=== PATIENT | male | born 1960 | race Caucasian/White ===

== ENCOUNTER 2018-05-07 11:29 | Observation (INO) | payer BC ==
--- NOTE | 2018-05-07 11:47 | ED ---
HPI Chest Pain - HPI Summary HPI Summary: The pt is a 57 y/o male resenting to [facility] c/o intermittent CP since 1.5 months ago worsened today morning. He notes SOB on exertion, dizziness, elevated blood pressure and nausea but denies fever. 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 Mayo MD at [facility]. He takes blood thinners. PMHx: DE in 8-9 years ago, HTN, DVT. Home Medications Medication Instructions Recorded Confirmed Type Atorvastatin* [Lipitor 20 MG*] 40 mg PO 2100 07/17/14 05/07/18 History Rivaroxaban TAB(*) [Xarelto 20 mg] 20 mg PO DAILY 09/20/17 05/07/18 History Aspirin EC TAB* [Ecotrin EC Low 81 mg PO QAM 05/07/18 05/07/18 History Dose 81 MG*] Metoprolol Succinate XL TAB* 25 mg PO BEDTIME 05/07/18 05/07/18 History [Toprol XL TAB*] Potassium Chlor TAB* [Klor Con ER 20 meq PO QAM 05/07/18 05/07/18 History TAB*] dilTIAZem HCl [Diltiazem 24Hr ER] 240 mg PO QAM 05/07/18 05/07/18 History - History of Current Complaint Time Seen by Provider: 05/07/18 11:38 Hx Obtained From: Patient Onset/Duration: Started Weeks Ago - 1.5 months, Still Present, Worse Since - Today morning Timing: Intermittent, Lasting Minutes Initial Severity: Mild Current Severity: Mild Pain Intensity: 4 Pain Scale Used: 0-10 Numeric Chest Pain Location: Diffuse Chest Pain Radiates: No Character: Pressure/Squeezing Aggravating Factor(s): Nothing Alleviating Factor(s): Nothing Associated Signs and Symptoms: Positive: Dizziness, Shortness of Breath, Nausea. Negative: Fever - Allergy/Home Medications Allergies/Adverse Reactions: Allergies Allergy/AdvReac Type Severity Reaction Status Date / Time atenolol AdvReac Mild Fatigue Verified 05/07/18 11:33 diltiazem AdvReac Mild Abdominal Verified 05/07/18 11:33 Pain Home Medications: Home Medications Aspirin EC TAB* [Ecotrin EC Low Dose 81 MG*] 81 mg PO QAM 05/07/18 [History Confirmed 05/07/18] Metoprolol Succinate XL TAB* [Toprol XL TAB*] 25 mg PO BEDTIME 05/07/18 [ History Confirmed 05/07/18] Potassium Chlor TAB* [Klor Con ER TAB*] 20 meq PO QAM 05/07/18 [History Confirmed 05/07/18] dilTIAZem HCl [Diltiazem 24Hr ER] 240 mg PO QAM 05/07/18 [History Confirmed ] PMH/Surg Hx/FS Hx/Imm Hx Previously Healthy: No Endocrine/Hematology History: Denies: Hx Diabetes Cardiovascular History: Reports: Hx Angina, Hx Coronary Artery Disease, Hx Hypercholesterolemia, Hx Hypertension - W/MEDS, Hx Myocardial Infarction Denies: Hx Congestive Heart Failure, Hx Pacemaker/ICD, Hx Valvular Heart Disease History: Denies: Hx Renal Disease Sensory History: Denies: Hx Hearing Aid Psychiatric History: Denies: Hx Panic Disorder - Cancer History Cancer Type, Location and Year: None reported - Surgical History Surgery Procedure, Year, and Place: HERNIA REPAIRS /VASECTOMY - Immunization History Date of Tetanus Vaccine: unknow Infectious Disease History: No Infectious Disease History: Denies: Traveled Outside the [place] in Last 30 Days - Social History Occupation: Employed Full-time Lives: With Family Alcohol Use: Daily Alcohol Amount: 2 glasses of wine Substance Use Type: Reports: None Hx Tobacco Use: No Smoking Status (MU): Never Smoked Tobacco Review of Systems Constitutional: Other - Positive: elevated blood pressure Negative: Fever Positive: Chest Pain Positive: Shortness Of Breath Positive: Nausea Positive: no symptoms reported All Other Systems Reviewed And Are Negative: Yes Physical Exam - Summary Physical Exam Summary: Appearance: Well appearing, no pain distress Skin: warm, dry, reflects adequate perfusion Head/face: normal Eyes: EOMI, CANDIE ENT: normal Neck: supple, non-tender Respiratory: CTA, breath sounds present Cardiovascular: RRR, pulses symmetrical Abdomen: non-tender, soft Bowel sounds : present Musculoskeletal: normal, strength/ROM intact Neuro: normal, sensory motor intact, A&Ox3 Triage Information Reviewed: Yes Vital Signs On Initial Exam: Initial Vitals Temp Pulse Resp BP Pulse Ox 98.1 F 88 18 220/108 100 05/07/18 11:31 05/07/18 11:31 05/07/18 11:31 05/07/18 11:31 05/07/18 11:31 Vital Signs Reviewed: Yes Diagnostics - Vital Signs Vital Signs Temp Pulse Resp BP Pulse Ox 05/07/18 11:31 98.1 F 88 18 220/108 100 - Laboratory Result Diagrams: 05/07/18 12:05 05/07/18 12:05 Lab Statement: Any lab studies that have been ordered have been reviewed, and results considered in the medical decision making process. - Radiology CXR Radiology Interpretation Completed By: Radiologist Summary of Radiographic Findings: IMPRESSION: No evidence for acute disease. The ED physician reviewed this radiology report. - EKG 11:41 Cardiac Rate: NL - 83 bpm EKG Rhythm: Sinus Rhythm ST Segment: Normal Ectopy: None Chest Pain Course/Dx - Course Course Of Treatment: A 57 year-old M presents to the ED with a CC of intermittent CP since 1.5 months ago worse today morning. He notes SOB on exertion, dizziness, elevated blood pressure and nausea but denies fever. A physical exam is unremarkable. A CXR is unremarkable. An EKG is unremarkable. In the ED course, the pt was given ASA 324mg PO, Clonidine 1.2 mg PO and NTG 2 % ointment 1 inch topical, Ketorolac 30 mg IV and Lorazepam 0.5 mg IV which improved the symptoms. I discussed the care of the pt with Dr. Mayo MD who recommended performing an echocardiogram (echo). The hospitalist- Dr. Mendoza agreed to admit the pt. 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 Pt is agreeable with this plan. Allergies noted. - Chest Pain Differential Diagnosis/HQI/PQRI: Acute DE, ACS, CHF, Lower Respiratory Infection , Pulmonary Edema - Diagnoses Provider Diagnoses: Chest pain, ACS (acute coronary syndrome) - Provider Notifications Discussed Care Of Patient With: Molina Huber - Posting Machine Operator Time Discussed With Above Provider: 12:51 Instructed by Provider To: Other - Dr. Huber recommended performing an echo. 13:07- Dr. Mendoza agreed to admit the pt. Discharge - Sign-Out/Discharge Documenting (check all that apply): Patient Departure - Admit - Discharge Plan Condition: Stable Disposition: ADMITTED TO [facility] Referrals: Gomez Blankenship MD [Primary Care Provider] - - Billing Disposition and Condition Condition: STABLE Disposition: Admitted to [facility] - Attestation Statements Document Initiated by Scribe: Yes Documenting Scribe: Yris Basilio Provider For Whom Scribe is Documenting (Include Credential): Dr. Tato Robles MD Scribe Attestation: Yris Virgen , scribed for Dr. Tato Robles MD on 05/07/18 at 1402. Scribe Documentation Reviewed: Yes Provider Attestation: The documentation as recorded by the [email or web address] accurately reflects the service I personally performed and the decisions made by , Dr. Tato Robles MD Status of Scribe Document: Viewed
[2018-05-07] MEDS ORDERED: Nitroglycerin 2% OINT* 1 GM PAK TOPICAL ONE (11:50)
[2018-05-07] MEDS ORDERED: Aspirin 81 mg CHEW TAB* 81 MG TAB.CHEW PO ONE (11:50)
[2018-05-07] MEDS ORDERED: Nitroglycerin 2% OINT* 1 GM PAK ONE (11:52)
[2018-05-07] MEDS ORDERED: cloNIDine TAB* 0.1 MG ONE (11:52)
[2018-05-07] MEDS ORDERED: cloNIDine TAB* 0.1 MG PO ONE (11:53)
[2018-05-07 12:24] LABS: ABS Basophils 0.1 10^3/ul (0-0.2); ABS Eosinophils 0.1 10^3/ul (0-0.6); ABS Lymphocytes 1.5 10^3/ul (1.0-4.8); ABS Monocytes 0.4 10^3/ul (0-0.8); ABS Neutrophils 2.4 10^3/ul (1.5-7.7); ABS Nucleated RBC 0 10^3/ul; Eosinophil % 1.3 %; Hematocrit 45 % (42-52); Hemoglobin 15.4 g/dl (14.0-18.0); Lymphocyte % 34.8 %; Mean Corpuscular HGB Conc 34 g/dl (31-36); Mean Corpuscular Hemoglobin 31 pg (27-31); Mean Corpuscular Volume 91 fL (80-94); Mean Platelet Volume 7.7 fL (7.4-10.4); Nucleated Red Blood Cells % 0.1; Platelet Count 267 10^3/ul (150-450); Red Blood Count 4.95 10^6/ul (4.00-5.40); Red Cell Distribution Width 13 % (10.5-15); White Blood Count 4.4 10^3/ul (3.5-10.8)
[2018-05-07 12:30] LABS: INR 1.43 (0.77-1.02)
[2018-05-07 12:41] LABS: EGFR Non-African American 84.4 (>60)
[2018-05-07] MEDS ORDERED: Ketorolac INJ* 30 MG/ML 1 ML VIAL IV PUSH ONE (12:53)
[2018-05-07] MEDS ORDERED: LORazepam INJ* 2 MG/ML 1 ML VIAL IV PUSH ONE (12:56)
[2018-05-07] MEDS ORDERED: Perflutren Lipid Microsphere* 3 ML VIAL ONE (13:22)
--- NOTE | 2018-05-07 14:39 | ECHO ---
Patient: [facility] Rec#: [id number] : 1960 Date: 05/07/2018 Age: 57y Height: 188 cm / 74.0 in Weight: 111 kg / 244.6 lbs Sex: M BSA: 2.37 Room#: ED 6 Admit Date#: 05/07/2018 Type: Inpatient Referring: Tato Robles Reading: Edmond Vela MD Customer Service Engineer: Kerry Browning,SIDNEYCS,RDMS CC: Hi Blankenship MD Transthoracic Echocardiogram Indication: CP BP: 132/81 HR: 88 Rhythm: NSR Findings History: [place], HTN, HLD, DVT, angina Technical Comments: The study quality is fair. Left Ventricle: The left ventricular chamber size is normal. Mild to moderate concentric left ventricular hypertrophy is observed. There is a prominent septal knuckle. Global left ventricular wall motion and contractility are within normal limits. There is normal left ventricular systolic function. The estimated ejection fraction is 55-60%. There is no consistent Doppler evidence of clinically significant diastolic dysfunction. Left Atrium: The left atrium is mildly dilated. Right Ventricle: The right ventricular chamber size and systolic function are within normal limits. The right ventricle wall thickness is mildly increased. Right Atrium: The right atrium is mildly dilated. Aortic Valve: The aortic valve is trileaflet. Systolic excursion of the aortic valve is normal. There is no evidence of aortic regurgitation. There is no evidence of aortic stenosis. Mitral Valve: The mitral valve leaflets appear normal. There is no evidence of mitral regurgitation. There is no evidence of mitral stenosis. Tricuspid Valve: The tricuspid valve leaflets are normal. There is no evidence of tricuspid valve regurgitation. Unable to estimate the right ventricular systolic pressure. Pulmonic Valve: There is no evidence of pulmonic valve thickening. There is no evidence of pulmonic regurgitation. Pericardium: There is no significant pericardial effusion. Aorta: There is moderate dilatation of the ascending aorta. (4.2 cm) There is no dilatation of the aortic arch. There is no dilation of the aortic root. Pulmonary Artery: The main pulmonary artery is not well visualized. Venous: The inferior vena cava appears normal in size. There is an approximate 50% respiratory change in the inferior vena cava dimension. Contrast: Definity was used to optimize study. A total of 2 ml was used. Summary: There are no significant changes when compared to the previous study done on 06/15/16 Conclusions Mild to moderate concentric left ventricular hypertrophy is observed. Global left ventricular wall motion and contractility are within normal limits. The estimated ejection fraction is 55-60%. The right ventricular chamber size and systolic function are within normal limits. There is no evidence of aortic stenosis. There is no evidence of mitral regurgitation. There is no evidence of tricuspid valve regurgitation. Unable to estimate the right ventricular systolic pressure. There is no significant pericardial effusion. Ascneding aorta with moderate dilation 4.2 cm Measurements Name Value Normal Range RVIDd (AP) 2D 3.2 cm (0.9 - 2.6) RVDdMajor (2D) 3.5 cm (2.2 - 4.4) RAd ISD 4CH 5.3 cm (3.4 - 4.9) RA (A4C)W 4.8 cm (2.9 - 4.6) IVSd (2D) 1.6 cm (0.6 - 1) LVPWd (2D) 1.4 cm (0.6 - 1) LVIDd (2D) 4.9 cm (3.6 - 5.4) LVIDs (2D) 2.7 cm - LV FS (2D) 46 % (25 - 45) Aortic Annulus 2.5 cm (1.4 - 2.6) Ao root diameter (2D) 3.4 cm (2.1 - 3.5) Ascending Ao 4.2 cm (2.1 - 3.4) Aortic arch 3.4 cm (1.8 - 3.4) LA dimension (AP) 2D 4.4 cm (2.3 - 3.8) LAd ISD 4CH 6.6 cm (2.9 - 5.3) LA ISD 4CH W 4.7 cm (2.5 - 4.5) Name Value Normal Range LA ESV BP (A/L) index 30 ml/m2 - Name Value Normal Range MV E-wave Vmax 0.5 m/sec - MV deceleration time 240 msec - MV A-wave Vmax 0.6 m/sec - MV E:A ratio 0.8 ratio - LV septal e' Vmax 0.07 m/sec - LV lateral e' Vmax 0.06 m/sec - LV E:e' septal ratio 7 ratio - LV E:e' lateral ratio 8 ratio - Name Value Normal Range AV Vmax 1.8 m/sec - AV VTI 30 cm - AV peak gradient 13 mmHg - AV mean gradient 7 mmHg - LVOT Vmax 1 m/sec - LVOT VTI 18.5 cm - LVOT peak gradient 4 mmHg - LVOT mean gradient 2 mmHg - SYLVESTER Vmax 1.1 m/sec - Name Value Normal Range RAP 8 mmHg - IVC diameter 1.8 cm - Name Value Normal Range PV Vmax 0.7 m/sec - PV peak gradient 2 mmHg -
[2018-05-07] MEDS ORDERED: Acetaminophen TAB* 325 MG PO PRN (15:10)
[2018-05-07] MEDS ORDERED: cloNIDine TAB* 0.1 MG PO PRN (15:31)
[2018-05-07] MEDS ORDERED: Magic Mouth Was-BEN/MAAL/LIDO SWISH SWAL ONE (15:40)
[2018-05-07] MEDS ORDERED: Iohexol 350* (CONTRAST) 500 ML MDV IV ONE (16:16)
[2018-05-07 17:15] VITALS: BP 129/66
[2018-05-07] MEDS ORDERED: Al Hydrox/Mg Hydrox/Simet LIQ* 30 ML UDC PO ONE (18:15)
--- NOTE | 2018-05-07 20:02 | HP ---
CC: Dr. Gomez Blankenship; Dr. Molina Huber * ADMISSION HISTORY AND PHYSICAL: DATE OF ADMISSION: 05/07/18 ATTENDING PHYSICIAN: Dr. Mendoza.* (DICTATED BY FLOYD ROWLAND) PRIMARY CARE PHYSICIAN: Dr. Gomez Blankenship. SPECIALIST: Dr. Molina Huber. CHIEF COMPLAINT: Npf-yys-r-half months of chest pain; lightheadedness, shortness of breath. HISTORY OF PRESENT ILLNESS: This is a 57-year-old man who presented to the ER with chest pain, lightheadedness, shortness of breath, and elevated blood pressure. The patient states that the pain has been intermittent for 1-1/2 months lasting from seconds to approximately 3 minutes, but since this morning he has had chest pain all morning. Nothing makes the pain better or worse and nothing precipitates the events. He has had chest pain at rest. The patient describes the pain as a dull ache with occasional sharpness. The patient states that the pain does not radiate and that the left side is worse than the right side of his chest. The pain is in the left pectoral area. He rates the pain as a 3-4/10 and states that it is constant. He states the pain has decreased since coming to the ER and receiving medications. In the ER, the patient received nitro ointment, aspirin, lorazepam, clonidine, and ketorolac. Ketorolac was given as the patient and his field sales trainer reported a history of pericarditis. The patient also states he has swelling in the right leg. This occurs with extended sitting and has been occurring for years. He has a history of 2 DVTs in the right leg, for which he is being treated with the Xarelto for. Upon arrival, the patient also complained of lightheadedness. The patient states that lightheadedness has subsided since arrival to the ER. He has experienced this previously and states that it is worse with standing or walking. He states it goes away after minutes. During the interview, the patient reported feeling constipated and feelings of abdominal fullness with decreased bowel movements. His last bowel movement was this morning, but he reports decreased frequency of bowel movements. Other associated symptoms include stuffiness, dry cough which he has had the last 1 to 2 days which he described as mild. The patient denies sweating, headache, blurred vision, palpitations. Upon arrival to the ER, it was discovered that he had significantly elevated blood pressure at 220/108. When asked about his history of hypertension, the patient states he does not take his blood pressure at home , but reports medication compliance. He states he feels asymptomatic. PAST MEDICAL HISTORY: Significant for cardiovascular disease reporting that he had a myocardial infarction in 2009; deep vein thrombosis, last one was approximately 6 years ago in the right leg, he also had one prior to 6 years ago also in the right leg; history of atrial fibrillation, last cardioversion was 3 years ago; hyperlipidemia; hypertension. HOME MEDICATIONS: 1. Rivaroxaban 20 mg p.o. daily. 2. Atorvastatin 40 mg p.o. nightly. 3. Diltiazem 240 mg p.o. daily. 4. Metoprolol XL 25 mg p.o. bedtime. 5. Potassium chloride tablet 20 mEq p.o. daily. 6. Aspirin EC tab 81 mg p.o. daily. ALLERGIES: Atenolol; Diltiazem. This was discussed with patient, and he states that Diltiazem allergy may have been entered in error, as he is not allergic to Diltiazem and he is currently taking the medication. FAMILY HISTORY: Father had a history of atrial fibrillation, hypertension; decreased due to sepsis. SOCIAL HISTORY: The patient denies any history of smoking. The patient states he drinks approximately 2 glasses of wine with dinner per day. The patient denies any illicit drug use. REVIEW OF SYSTEMS: A 10-point review of systems is negative except for as noted in the above HPI. PHYSICAL EXAMINATION GENERAL: The patient is alert and oriented, in no acute distress and resting. VITAL SIGNS: Current temperature 98.1, heart rate 75, blood pressure 132/81, respiratory rate 16, oxygen saturation 93%. Height 6 feet 2 inches, weight 245 pounds. HEENT: The patient is atraumatic and normocephalic. Pupils are equally round and reactive to light without icterus. EOMI. Oral mucosa is moist. Tongue is midline. NECK: Supple and nontender. No JVD is noted. No carotid bruits auscultated. LUNGS: Clear to auscultation bilaterally. Equal expansion b/l with breathing. CARDIOVASCULAR: S1 and S2 are present with a regular rate and rhythm. No murmurs, rubs, clicks, or gallops. ABDOMEN: Protuberant, soft, nontender, and nondistended. Bowel sounds heard in all 4 quadrants. : Deferred. MUSCULOSKELETAL: There is no clubbing or cyanosis; edema noted on the right lower extremity, nonpitting. Distal pulses palpable. NEUROLOGIC: He is grossly intact. Alert and oriented with no focal deficits. PSYCHIATRIC: He is cooperative and appropriate. DIAGNOSTIC STUDIES/LAB DATA: WBC 4.4, RBC 4.95, Hgb 15.4, Hct 45, platelets 267. Sodium 139, potassium 4.0, chloride 107, carbon dioxide 24, BUN 13, creatinine 0.93, GFR 84.4. Troponin 0.00. C-reactive protein less than 1. BNP 37. EKG report reveals sinus rhythm, probable left ventricular hypertrophy. Chest x-ray, impression: Reveals no evidence for acute disease. IMPRESSION: A 57-year-old man with chest pain for 1-1/2 months, lightheadedness , shortness of breath, and hypertension. DIAGNOSES: 1. Chest pain. Admit the patient for observation overnight. Last cardiac catheterization was in June of 2016 and was negative. Transesophageal echo was performed and we are awaiting a reading. Troponins were negative x2, the third one has been ordered. Dr. Huber, the patient's field sales trainer, was consulted on the patient and suggested a CTA of the chest to rule out dissection , which has been ordered for today. He also suggested a GI cocktail, which has been ordered. While discussing the case, it was decided to order a stress echocardiogram for tomorrow morning. The patient will be n.p.o. after midnight. EKG is ordered prn rhythm changes on the floor. 2. Hypertensive urgency. Continue home blood pressure medications, metoprolol , and diltiazem. Clonidine 0.1 mg p.o. q.8 hours p.r.n. systolic blood pressure greater than 160 or diastolic blood pressure greater than 90 ordered. Metoprolol or diltiazem can be increased if blood pressure not adequately controlled. 3. Cardiovascular disease. Continue home medications, aspirin, and atorvastatin. 4. History of deep vein thrombosis. Continue Xarelto. 5. History of atrial fibrillation. Continue metoprolol, diltiazem, and Xarelto. 6. Hyperlipidemia. Continue atorvastatin. TIME SPENT: Approximately 60 minutes evaluating the patient, physical examination, interfacing with ER providers and discussing the case with Dr. Mendoza and Dr. Huber; both are in agreement with this plan. JAK LAWRENCE, FLOYD [id number]/[facility] #: [id number] Addendum: Spoke with Dr. Huber and he states that the patient's pain is now positional and he is requesting to be sent home. Dr. Huber is in agreement after reviewing patient's record and the results of the CTA; he states that the Stress Echo can be performed on an outpatient basis if the patient has continued symptoms. He states the patient can be discharged on his home medications, nitro SL, and protonix 40 mg. He strongly urges the patient to monitor his BP at home. At time of discharge, pt was no longer in hypertensive urgency with blood pressure reading 132/81. This history and physical also serves as a discharge summary. ARRON
[2018-05-07] MEDS ORDERED: Docusate CAP* 100 MG PO SCH (21:00)
[2018-05-07] MEDS ORDERED: Metoprolol Succinate XL TAB* 25 MG PO SCH (21:00)
[2018-05-07] MEDS ORDERED: Atorvastatin* 20 MG TAB PO SCH (21:00)
--- NOTE | 2018-05-07 22:58 | CONS ---
CC: Dr. Huber; Dr. Blankenship.* CONSULTATION REPORT: DATE OF CONSULT: 05/07/18 CONSULTING PROVIDER: FLOYD Doan. REASON FOR EVALUATION: Chest pain. HISTORY OF PRESENT ILLNESS: This is a very pleasant 57-year-old gentleman with a longstanding history of hypertension, coronary artery disease, pericarditis, paroxysmal atrial fibrillation in the past, hyperlipidemia, who was called early today with report of chest discomfort. He also has right knee discomfort , which limits his exercise and he is noncompliant with exercise regimen. He has gained a few pounds he said recently and has not been exercising regularly. He does walk occasionally around the neighborhood. He gets short of breath going upstairs, which is normal for him. About 2 weeks ago, he took a flight to [place], [place], to visit a relative. While he was on the plane, he noticed some transient achiness in his left chest. There were no associated symptoms. Over the last 2 weeks, he has had intermittent episodes of achiness, usually in the morning and resolves with straightening up. He helped to move some mattresses over the weekend and was noted to be more short of breath with exertion than he had been in the past. His son mentioned it to his , but he denied any orthopnea or chest pain with the episode. This morning, he woke up at 6:30 and had the pain that usually goes away in a few minutes, it did not go away. Because of the persistence, they called me. I advised them to go to the nearest emergency room and he decided to travel to [place] and was seen in the emergency room. His pain at worse was 6/10. It gradually went down to 3/ 10. It did not seem to change with nitroglycerin, which was applied or Toradol , which was given. His troponin was negative. His sed rate was 10 and CRP was negative at less than 1 and troponins x2 were negative. His EKG had no diagnostic changes. He did have markedly elevated blood pressure when he first arrived, which was 220/108 with a heart rate of 88. He was afebrile. Because of those findings, he was given clonidine at 11:52 of 0.2 mg tablet, Toradol 30 mg at 1 o'clock, lorazepam 0.5 mg at 1 o'clock and nitroglycerin at noon. His blood pressure has since decreased, by 12:40, it was down to 139/80 and 135/____ __. It is currently 129/66. He continues to have some achiness in his left pectoral area. He said it was worse when he was getting the echocardiogram and does seem to be positional. His also mentioned that he has been complaining of some constipation over the last few weeks and is having infrequent bowel movements. He denies any associated gas, diaphoresis or sour taste. No orthopnea, no peripheral edema, no pain in his legs. PAST MEDICAL HISTORY: As listed above, includes MN in the past, abnormal stress test in June 2016 and he underwent cardiac catheterization on , which revealed minimal 10% lesion in the circumflex. No significant lesions in the left anterior descending. PAST SURGICAL HISTORY: Includes right rotator cuff repair in 2017. MEDICATIONS: His current medications include: 1. Acetaminophen 650. 2. Aspirin 81. 3. Atorvastatin 40, increased a few months ago from 20 to 40. 4. Clonidine 0.1 q.8 p.r.n. 5. Cardizem 240 mg daily, long acting. 6. Colace 100 mg b.i.d. 7. Metoprolol 25 mg at bedtime. 8. Potassium 20 mEq q.a.m. 9. Xarelto 20 mg q.p.m. At home, he was on Protonix 40 mg a day. ALLERGIES: Include DILTIAZEM, abdominal pain; ATENOLOL, fatigue. 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 Drinks alcohol fairly regularly. No tobacco use. REVIEW OF SYSTEMS: Review of systems x10 was negative except as above. PHYSICAL EXAMINATION: He is a well-developed, well-nourished, obese gentleman, in no apparent distress. His blood pressure is 129/66, pulse of 70, O2 sats 97% , afebrile. Cardiac Exam: S1, S2 without murmurs, gallops, or rubs. Chest is clear. Extremities: No edema. Distal pulses intact. Negative Homans sign. Abdominal Exam: Bowel sounds present, nontender. Femoral pulses intact without bruits. DIAGNOSTIC STUDIES/LAB DATA: EKG revealed normal sinus rhythm with no acute changes, possible LVH. CTA of the chest revealed no evidence of acute aortic disease or pulmonary embolism. There was an old 3 mm pulmonary nodule in the right middle lobe. Transthoracic echo from today revealed EF of 55-60%, no MR or , ascending aorta moderately dilated at 4.2, probable diastolic dysfunction based on the inflow parameters, grade 1. Chest x-ray - no evidence for acute disease. Labs: Troponin of 0 x2. CRP less than 1. BNP of 37. BUN of 13, creatinine of 0.93, INR of 1.43. CBC normal. Sed rate 10. IMPRESSION: My impression is that Mr. Pritchett has had episodes of chest discomfort of unclear etiology over the last 2 weeks. No evidence of infarct or ischemia by troponins or EKG. He was markedly hypertensive when he came in, which resolved with treatment with benzodiazepine. I suspect that the etiology of his chest pain is unclear, but given the recent GI symptoms and the positional nature of pain, it could be gastrointestinal or perhaps musculoskeletal. It seems less likely it is a life threatening process either related to pulmonary embolism, aortic dissection, or ischemic heart disease. I discussed this at length with the patient and his , although they seemingly understand that we have not identified the cause of his chest pain but they are willing to go home and have rest of the workup as an outpatient understanding that there is a small risk of recurrence or untoward events. For the time being , I have recommended the followin. I discussed the case with Tricia Ford. 2. We would consider continuing his Protonix. 3. We would remove his nitro paste at this time. 4. I strongly recommended that he check his blood pressures at home and confirm they are well controlled on his current regimen. If not, we will advance his regimen. 5. I have recommended weight reduction and gentle regular moderate exercise. 6. I will ask them to treat his constipation to see if that helps with his pain. 7. Further recommendations pending on this clinical course and I will see him as an outpatient. [id number]/[facility] #: [id number] [facility] SERVICESJimy
[2018-05-08] MEDS ORDERED: Aspirin EC TAB* 81 MG TAB.EC PO SCH (09:00)
[2018-05-08] MEDS ORDERED: Diltiazem CD CAP* 240 MG PO SCH (09:00)
[2018-05-08] MEDS ORDERED: Potassium Chlor TAB* 10 MEQ TAB.ER PO SCH (09:00)
[2018-05-08] MEDS ORDERED: Rivaroxaban TAB(*) 20 MG TAB PO SCH (18:00)
== END 2018-05-07 19:30 | disposition home or self-care (01) ==
LOC: ED 11:29 → MEDTELE 15:04
PROVIDERS: ADMIT Internal Medicine; ATTEND Internal Medicine
DX: R07.9 Chest pain, unspecified (principal); R06.02 Shortness of breath; R11.0 Nausea; R42 Dizziness and giddiness; I25.2 Old myocardial infarction; I82.4Z9 Acute embolism and thrombosis of unspecified deep veins of unspecified distal lower extremity; E78.5 Hyperlipidemia, unspecified; I25.10 Atherosclerotic heart disease of native coronary artery without angina pectoris; I10 Essential (primary) hypertension; Z79.82 Long term (current) use of aspirin; I31.9 Disease of pericardium, unspecified
CPT/HCPCS: 36415; 71045; 71275; 80053; 83605; 83880; 84484; 85025; 85610; 85652; 85730; 86140; 93005; 93306; 96374; 96375; 99285; A9270-GY; C8929; G0378; J1885; J2060; Q9967